=== PATIENT | female | born 1955 | race Caucasian/White ===

== ENCOUNTER 2020-03-12 06:30 | Day surgery (SDC) | payer BC ==
[~2020-03-12 06:30] MED LIST: CEFAZOLIN 2 GM-D5W BAG** 2 GM/50 ML ML IV SCH; Lactated Ringers 1,000 ML IV SCH
[2020-03-12 07:51] LABS: ANION GAP 9.5 MEQ/L (5-15); BLOOD UREA NITROGEN 14 mg/dL (7-17); CHLORIDE 108 mmol/L (98-107); Calcium 9.1 mg/dL (8.4-10.2); Carbon Dioxide 25 mmol/L (22-30); EST GLOMERULAR FILTRATION RATE > 60.0 ML/MIN; Glucose 114 mg/dL (74-106); Potassium 4.3 mmol/L (3.5-5.1); SODIUM 139 mmol/L (137-145)
[2020-03-12] MEDS ORDERED: SUBLIMAZE 100 MCG/2 ML ONE (08:39)
[2020-03-12] MEDS ORDERED: DIPRIVAN 200 MG/20 ML IV ONE (08:39)
[2020-03-12] MEDS ORDERED: Versed 2 MG/2 ML Injection ONE (08:40)
[2020-03-12 09:59] VITALS: O2SAT 98
[2020-03-12 10:44] VITALS: BP 146/76; PULSE 64
--- NOTE | 2020-03-13 11:48 | OP ---
SURGERY DATE/TIME: 03/12/2020 0838 PREOPERATIVE DIAGNOSIS: Postmenopausal bleeding. POSTOPERATIVE DIAGNOSIS: Postmenopausal bleeding. PROCEDURE: Dilatation and currettage. SURGEON: Yeyo Sosa D.O. HEALTH EDUCATION DIRECTOR: Brendon Rondon hand frame surgical elastic knitter. ANESTHESIA: General. ESTIMATED BLOOD LOSS: Minimal. COMPLICATIONS: None. INDICATIONS: The risks, benefits, indications and alternatives of the procedure were reviewed with the patient prior to the procedure. The patient understood the risk of infection, bleeding, bowel injury, bladder injury, ureteral injury, uterine perforation associated with the surgery however desires to have this surgery as a possible means to alleviate her current medical condition. DESCRIPTION OF PROCEDURE AND FINDINGS: At this point the patient is taken to the operating room, given general sedation, placed in dorsal lithotomy position, prepped and draped in the usual sterile fashion. A weighted speculum is then placed in the patient's vagina and the anterior lip of the cervix was grasped with a single tooth tenaculum. However this was very difficult secondary to her BMI. Hysteroscope was not attempted secondary to having a difficult time with lateral retraction. From this point dilators were used to advance through the endocervical canal as a means to dilate the cervix and curette was then placed into the fundus of the uterus where it had been sounded to approximately 8 to 9 cm. Curettage performed in all quadrants of the uterus retrieving a mild to moderate amount of tissue. From this point after complete hemostasis was obtained, all instruments were then removed from the patient's vaginal region. The patient was then taken out of dorsal lithotomy position, was taken out of anesthesia and taken to the recovery room in stable condition. All instruments and laps were accounted for x2.
== END 2020-03-12 11:00 | disposition home or self-care (01) ==
LOC: SDC 06:30
PROVIDERS: ATTEND Obstetrics & Gynecology
DX: N95.0 Postmenopausal bleeding (principal); I10 Essential (primary) hypertension
CPT/HCPCS: 36415; 80048; 93005; J0690; J2250; J2704; J3010